=== PATIENT | male | born 1960 | race Caucasian/White ===

== ENCOUNTER 2017-01-16 13:11 | Emergency (ER) | payer OTHER ==
--- NOTE | ~2017-01-16 | EKG ---
PATIENT: RAMIREZ MOTLEY UNIT #: [id number] Ventricular Rate: 79 BPM Atrial Rate: 79 BPM P-R Interval: 196 ms QRS Duration: 98 ms Q-T Interval: 352 ms QTC Calculation(Bezet): 403 ms P [facility]: 57 degrees Calculated R [facility]: 37 degrees Calculated T [facility]: 33 degrees Diagnosis Line: Normal sinus rhythm Diagnosis Line: Normal ECG Diagnosis Line: When compared with ECG of 18-MAY-2010 07:07, Diagnosis Line: PREVIOUS ECG IS PRESENT Diagnosis Line: Confirmed by EDILBERTO VALVERDE MD ([id number]) on 01/16/2017 Diagnosis Line: 11:06:09 PM INTERPRETING MD: NICOLLE VILLALBA
--- NOTE | ~2017-01-16 | CT2 ---
[facility] A Service of [facility] RADIOLOGY TEXT RESULTS PATIENT: RAMIREZ MOTLEY LOCATION: [facility] : 64 UNIT #: [id number] AGE: [address]: Rickie Kapoor MD SEX: M ORDER DR: [id number] [facility] [address] [place], [place] [address] [id number] MR#: [id number] Acc #: [id number] NAME: RAMIREZ MOTLEY : 1960 SEX: M STUDY DATE/TIME: 01/16/2017 13:43 UNIT: [facility] ROOM: STUDY DESCRIPTION: CT Abd and Pelv W Cont Attending Physician: Rickie Kapoor M.D. Referring Physician: Daniela Self Referred Ordering Physician: Rickie Kapoor M.D. Primary Care Physician: Carmelo Amaya M.D. MEDICAL IMAGING REPORT This report is preliminary unless electronic signature is present EXAM CT abdomen and pelvis, with contrast. HISTORY Mid abdominal pain radiating to the back for the past week. TECHNIQUE Contrast-enhanced CT of the abdomen and pelvis. 100 mL of Isovue-370. This CT exam was performed with one or more of the following radiation dose reduction techniques: automatic exposure control, adjustment of mA and/or kV according to patient size, and iterative reconstruction. COMPARISON None FINDINGS ABDOMEN WITH CONTRAST: Included lung bases clear. The liver, spleen, kidneys, adrenal glands, pancreas and gallbladder are unremarkable. Moderate colonic stool burden. Appendix is normal. There is no hydronephrosis. PELVIS WITH CONTRAST: Prostate measures 5.7 cm. No pelvic mass or fluid. No age-appropriate bone lesion. IMPRESSION 1. No acute findings in the abdomen or pelvis. No hydronephrosis. Normal appendix. 2. Prostatomegaly. Dictated by... Chadwick Reyes M.D. [facility] A Service of [facility] RADIOLOGY TEXT RESULTS PATIENT: RAMIREZ MOTLEY LOCATION: [facility] : 64 UNIT #: [id number] AGE: [address]: Rickie Kapoor MD SEX: M ORDER DR: THIS IS AN ELECTRONICALLY VERIFIED REPORT Chadwick Reyes M.D. at 01/17/2017 7:35 AM Jaison TD: 01/16/2017 17:29 JOB #: [id number] MEDICAL IMAGING REPORT Page 1 of 1 COPY
[2017-01-16 12:27] LABS: BASOPHIL# 0.1 X10e3 (0-0.3); BASOPHIL% 0.6 % (0-2.5); EOSINOPHIL# 0.1 X10e3 (0-0.7); EOSINOPHIL% 0.9 % (0.0-7.0); HEMATOCRIT 46.5 % (38.0-50.0); HEMOGLOBIN 15.6 gm/dL (13.0-16.0); LYMPHOCYTE% 17.6 % (17.0-45.0); MEAN CELL VOLUME 92.9 FL (83-96); MEAN CORPUSCULAR HGB CONC 33.4 g/dL (30-36); MEAN PLATELET VOLUME 8.6 FL (6.5-11.5); MONOCYTE# 0.9 X10e3 (0-1.0); MONOCYTE% 7.7 % (3.0-12.0); NEUTROPHIL# 8.4 X10e3 (1.5-7.1); NEUTROPHIL% 73.2 % (40-75); PLATELET COUNT 164 X10e3 (140-420); RED BLOOD COUNT 5.01 X10e (3.90-5.60); RED CELL DISTRIBUTION WIDTH 13.1 % (11.0-15.5); WHITE BLOOD COUNT 11.4 X10e3 (4.0-10.5)
[2017-01-16 12:31] LABS: DIFF IND NO
[2017-01-16 12:40] LABS: POC - CKMB <1.0 ng/mL (0.0-7.9); POC - TROPONIN <0.05 ng/mL (<=0.05)
[2017-01-16 12:53] LABS: ALBUMIN SERUM 3.8 g/dL (3.5-5.0); BILIRUBIN, DIRECT 0.1 mg/dL (0.0-0.2); BILIRUBIN,INDIRECT 0.4 mg/dL (0.0-0.9); BILIRUBIN,TOTAL 0.5 mg/dL (0.2-2.0); BUN/CREATININE RATIO 12.72; CALCIUM SERUM 9.4 mg/dL (8.4-10.2); CREATININE SERUM 1.1 mg/dL (0.6-1.4); GLOM FILT RATE Estimated 75.7 mL/min (>60); POTASSIUM 3.8 mmol/L (3.5-5.1); PROTEIN TOTAL SERUM 6.1 g/dL (6.0-8.3)
[~2017-01-16 13:11] MED LIST: KEFLEX500 MG PO; MOBIC PO
== END 2017-01-16 14:41 | disposition home or self-care (01) ==
LOC: CED 13:11
PROVIDERS: Emergency Medicine
DX: R10.13 Epigastric pain (principal); F17.210 Nicotine dependence, cigarettes, uncomplicated
CPT/HCPCS: 36415; 74177; 80048; 80076; 82150; 82553; 83690; 84484; 85025; 93005; 96374; 96375; 99284; J2270; J2405; Q9967